=== PATIENT | female | born 2000 | race Caucasian/White ===

== ENCOUNTER 2019-10-16 15:44 | Observation (INO) | payer OTHER ==
[~2019-10-16] VITALS: Ht 160 cm; Wt 97.5 kg
[2019-10-16] MEDS ORDERED: LACTATED RINGERS 1,000 ML IV SCH (16:48)
[2019-10-16] MEDS ORDERED: METHYLERGONOVINE 0.2 MG/ML AMP IM PRN (16:50)
[2019-10-16] MEDS ORDERED: PROMETHAZINE 25 MG/ML VIAL IVP PRN (16:50)
[2019-10-16] MEDS ORDERED: NALBUPHINE 10 MG/ML AMP IVP PRN (16:50)
[2019-10-16] MEDS ORDERED: OXYTOCIN 10 UNITS/ML VIAL IM SCH (16:50)
[2019-10-16] MEDS ORDERED: CARBOPROST 250 MCG/ML AMP IM PRN (16:50)
[2019-10-16 17:55] LABS: BASOPHILS % (AUTO) 0.4 % (0.0-2.0); EOSINOPHILS # (AUTO) 0.2 K/uL (0-0.4); EOSINOPHILS % (AUTO) 2.4 % (0.0-4.0); HEMATOCRIT 35.5 % (36-48); HEMOGLOBIN 11.8 g/dL (12.0-16.0); LYMPHOCYTES # (AUTO) 1.5 K/uL (2.5-16.5); LYMPHOCYTES % (AUTO) 16.8 % (20.5-51.1); MEAN CORPUSCULAR HEMOGLOBIN 28 pg (27-31); MEAN CORPUSCULAR HGB CONC 33 g/dL (33-37); MEAN CORPUSCULAR VOLUME 85.2 fL (80-94); MONOCYTES # (AUTO) 0.7 K/uL (0.8-1.0); MONOCYTES % (AUTO) 7.6 % (1.7-9.3); NEUTROPHILS # (AUTO) 6.4 K/uL (1.8-7.7); NEUTROPHILS % (AUTO) 72.8 % (42.2-75.2); PLATELET COUNT (AUTO) 365 K/uL (140-450); RED BLOOD CELL COUNT(AUTO) 4.17 MIL/uL (4.20-5.40); RED CELL DISTRIBUTION WIDTH 14.5 % (11.6-13.7); WHITE BLOOD COUNT (AUTO) 8.7 K/uL (4.5-11.0)
[2019-10-16 18:01] LABS: APPEARANCE,URINE HAZY (CLEAR); BILIRUBIN,URINE NEGATIVE (NEGATIVE); BLOOD, URINE NEGATIVE (NEGATIVE); COLOR,URINE ORANGE (YELLOW); LEUKOCYTE ESTERASE ,URINE 1+ (NEGATIVE); NITRITE, URINE NEGATIVE (NEGATIVE); PH,URINE 6.5 (5.0-9.0); UGLUCOSE NEGATIVE (NEGATIVE)
[2019-10-16 18:11] LABS: RBC,URINE NONE SEEN /HPF (0-5)
[2019-10-16 19:19] VITALS: BP 129/77
[2019-10-16] MEDS ORDERED: MISOPROSTOL 25 MCG TAB VG SCH (20:00)
[2019-10-17] MEDS ORDERED: INFLUENZA VACCINE QUAD 0.5 ML SYR IMVAC PRN (20:00)
== END 2019-10-16 20:15 | disposition home or self-care (01) ==
LOC: MLD 15:44
PROVIDERS: ADMIT Obstetrics & Gynecology; ATTEND Obstetrics & Gynecology
DX: O41.03X0 Oligohydramnios, third trimester, not applicable or unspecified (principal); Z3A.38 38 weeks gestation of pregnancy
CPT/HCPCS: 36415; 76805; 81001; 85025; 86592; 86886; 86900; 86901; 87086; G0378; Q0092

== ENCOUNTER 2019-10-18 10:06 | Inpatient (IN) | payer OTHER ==
[~2019-10-18] VITALS: Ht 160 cm; Wt 98.0 kg
[2019-10-18] MEDS: LACTATED RINGERS 1,000 ML IV SCH
[2019-10-18] MEDS ORDERED: MISOPROSTOL 25 MCG TAB VG PRN (10:35)
[2019-10-18] MEDS ORDERED: METHYLERGONOVINE 0.2 MG/ML AMP IM PRN (10:35)
[2019-10-18] MEDS ORDERED: CARBOPROST 250 MCG/ML AMP IM PRN (10:35)
[2019-10-18] MEDS ORDERED: NALBUPHINE 10 MG/ML AMP IVP PRN (10:35)
[2019-10-18] MEDS ORDERED: PROMETHAZINE 25 MG/ML VIAL IVP PRN (10:35)
[2019-10-18] MEDS ORDERED: OXYTOCIN 10 UNITS/ML VIAL IM SCH (10:35)
[2019-10-18 11:08] LABS: APPEARANCE,URINE CLEAR (CLEAR); BILIRUBIN,URINE NEGATIVE (NEGATIVE); BLOOD, URINE NEGATIVE (NEGATIVE); COLOR,URINE YELLOW (YELLOW); LEUKOCYTE ESTERASE ,URINE TRACE (NEGATIVE); NITRITE, URINE NEGATIVE (NEGATIVE); PH,URINE 6.5 (5.0-9.0); UGLUCOSE NEGATIVE (NEGATIVE)
[2019-10-18 11:11] LABS: BASOPHILS % (AUTO) 0.4 % (0.0-2.0); EOSINOPHILS # (AUTO) 0.3 K/uL (0-0.4); EOSINOPHILS % (AUTO) 3.3 % (0.0-4.0); HEMATOCRIT 34.6 % (36-48); HEMOGLOBIN 11.4 g/dL (12.0-16.0); LYMPHOCYTES # (AUTO) 1.8 K/uL (2.5-16.5); LYMPHOCYTES % (AUTO) 22.6 % (20.5-51.1); MEAN CORPUSCULAR HEMOGLOBIN 28 pg (27-31); MEAN CORPUSCULAR HGB CONC 33 g/dL (33-37); MEAN CORPUSCULAR VOLUME 85.6 fL (80-94); MONOCYTES # (AUTO) 0.7 K/uL (0.8-1.0); MONOCYTES % (AUTO) 8.2 % (1.7-9.3); NEUTROPHILS # (AUTO) 5.2 K/uL (1.8-7.7); NEUTROPHILS % (AUTO) 65.5 % (42.2-75.2); PLATELET COUNT (AUTO) 353 K/uL (140-450); RED BLOOD CELL COUNT(AUTO) 4.04 MIL/uL (4.20-5.40); RED CELL DISTRIBUTION WIDTH 14.6 % (11.6-13.7); WHITE BLOOD COUNT (AUTO) 7.9 K/uL (4.5-11.0)
[2019-10-18 11:29] LABS: ANION GAP 14.6 (8-16); CARBON DIOXIDE 23.8 mmol/L (21-32); POTASSIUM 4.4 mmol/L (3.5-5.1)
[2019-10-18 11:35] LABS: ALBUMIN 2.3 g/dL (3.4-5.0); TOTAL BILIRUBIN 0.2 mg/dL (0.0-1.0)
[2019-10-18] MEDS ORDERED: MISOPROSTOL 25 MCG TAB ONE (11:45)
[2019-10-18 12:53] LABS: RBC,URINE 0-5 /HPF (0-5); WBC,URINE 0-5 /HPF (0-5)
[2019-10-19] MEDS ORDERED: OXYTOCIN 20 UNITS/LR PREMIX 1,000 ML IV ONE (02:27)
[2019-10-19] MEDS ORDERED: BUPIVACAINE 0.125%/NS PREMIX 250 ML ONE (07:27)
--- NOTE | 2019-10-19 08:14 | NUR ---
PATIENT HAS BEEN SCREENED AND CATEGORIZED LOW NUTRITION RISK. PATIENT WILL BE SEEN WITHIN 7 DAYS OF ADMISSION. 10/24/[address]
[2019-10-19] MEDS: LACTATED RINGERS 1,000 ML IV SCH ×2 (08:32→16:54)
[2019-10-19] MEDS ORDERED: LIDOCAINE 1% 500 MG/50 ML VIAL ONE (19:25)
[2019-10-19] MEDS ORDERED: NACL 0.9% 1,000 ML IV SCH (19:35)
[2019-10-19] MEDS ORDERED: CITRIC ACID/SODIUM CITRATE 30 ML UDC PO ONE (21:45)
[2019-10-19] MEDS ORDERED: CITRIC ACID/SODIUM CITRATE 30 ML UDC ONE (21:48)
[2019-10-19] MEDS ORDERED: ceFAZolin 1,000 MG VIAL ONE (21:48)
[2019-10-19] MEDS ORDERED: fentaNYL 0.05 MG/ML VIAL ONE (22:05)
[2019-10-19] MEDS ORDERED: KETAMINE 500 MG/5 ML VIAL ONE (22:05)
[2019-10-19] MEDS ORDERED: MORPHINE PRES FREE 10 MG/10 ML AMP IV ONE (22:05)
[2019-10-19] MEDS ORDERED: SODIUM BICARBONATE 8.4% PFS 50 MEQ/50 ML SYR IVP ONE (22:06)
[2019-10-19] MEDS ORDERED: LIDOCAINE MPF 2% 100 MG/5 ML VIAL INJ ONE (22:15)
[2019-10-19] MEDS ORDERED: PROPOFOL 200 MG/20 ML VIAL IV ONE (22:20)
[2019-10-19] MEDS ORDERED: ONDANSETRON 4 MG/2 ML VIAL ONE (22:20)
[2019-10-19] MEDS ORDERED: MIDAZOLAM 2 MG/2 ML VIAL ONE (23:14)
[2019-10-20] MEDS ORDERED: OXYTOCIN 20 UNITS in LACTATED RINGERS 1,000 ML IV SCH ×2 (01:19→01:21)
[2019-10-20] MEDS ORDERED: MEASLES, MUMPS, AND RUBELLA 1 VIAL SQVAC PRN (01:20)
[2019-10-20] MEDS ORDERED: KETOROLAC 30 MG/ML VIAL IVP PRN ×2 (01:20→01:25)
[2019-10-20] MEDS ORDERED: HYDROmorphone 1 MG/ML AMP IVP PRN (01:20)
[2019-10-20] MEDS ORDERED: ONDANSETRON 4 MG/2 ML VIAL IVP PRN (01:25)
[2019-10-20] MEDS ORDERED: NALOXONE 0.4 MG/ML VIAL IVP PRN (01:25)
[2019-10-20] MEDS ORDERED: diphenhydrAMINE 50 MG/ML VIAL IVP PRN (01:25)
[2019-10-20 01:26] LABS: BASOPHILS % (AUTO) 0.2 % (0.0-2.0); HEMATOCRIT 24.5 % (36-48); HEMOGLOBIN 7.9 g/dL (12.0-16.0); LYMPHOCYTES # (AUTO) 0.8 K/uL (2.5-16.5); LYMPHOCYTES % (AUTO) 4.7 % (20.5-51.1); MEAN CORPUSCULAR HEMOGLOBIN 28 pg (27-31); MEAN CORPUSCULAR HGB CONC 32 g/dL (33-37); MEAN CORPUSCULAR VOLUME 85.3 fL (80-94); MONOCYTES # (AUTO) 0.8 K/uL (0.8-1.0); MONOCYTES % (AUTO) 4.9 % (1.7-9.3); NEUTROPHILS # (AUTO) 15.8 K/uL (1.8-7.7); NEUTROPHILS % (AUTO) 90.2 % (42.2-75.2); PLATELET COUNT (AUTO) 292 K/uL (140-450); RED BLOOD CELL COUNT(AUTO) 2.87 MIL/uL (4.20-5.40); RED CELL DISTRIBUTION WIDTH 14.5 % (11.6-13.7); WHITE BLOOD COUNT (AUTO) 17.5 K/uL (4.5-11.0)
[2019-10-20] MEDS ORDERED: OXYTOCIN 20 UNITS/LR PREMIX 1,000 ML IV ONE (01:47)
[2019-10-20] MEDS: LACTATED RINGERS 1,000 ML IV SCH ×2 (02:33→15:36)
[2019-10-20] MEDS ORDERED: FUROSEMIDE 20 MG/2 ML VIAL IVP SCH ×3 (06:00→11:25)
[2019-10-20] MEDS ORDERED: ACETAMINOPHEN 325 MG TAB PO PRN (08:20)
[2019-10-20] MEDS ORDERED: ACETAMINOPHEN 325 MG TAB ONE (09:30)
[2019-10-20 19:38] LABS: BASOPHILS % (AUTO) 0.2 % (0.0-2.0); EOSINOPHILS % (AUTO) 0.2 % (0.0-4.0); HEMATOCRIT 27.2 % (36-48); HEMOGLOBIN 9.1 g/dL (12.0-16.0); LYMPHOCYTES # (AUTO) 1.2 K/uL (2.5-16.5); LYMPHOCYTES % (AUTO) 7.3 % (20.5-51.1); MEAN CORPUSCULAR HEMOGLOBIN 28 pg (27-31); MEAN CORPUSCULAR HGB CONC 33 g/dL (33-37); MEAN CORPUSCULAR VOLUME 84.5 fL (80-94); MONOCYTES # (AUTO) 0.7 K/uL (0.8-1.0); MONOCYTES % (AUTO) 4.2 % (1.7-9.3); NEUTROPHILS # (AUTO) 14.5 K/uL (1.8-7.7); NEUTROPHILS % (AUTO) 88.1 % (42.2-75.2); PLATELET COUNT (AUTO) 197 K/uL (140-450); RED BLOOD CELL COUNT(AUTO) 3.22 MIL/uL (4.20-5.40); RED CELL DISTRIBUTION WIDTH 14.4 % (11.6-13.7); WHITE BLOOD COUNT (AUTO) 16.4 K/uL (4.5-11.0)
[2019-10-20] MEDS: ACETAMINOPHEN 325 MG TAB PO PRN (22:12)
[2019-10-21] MEDS: ACETAMINOPHEN 325 MG TAB PO PRN (06:32)
[2019-10-21 11:07] LABS: EOSINOPHILS # (AUTO) 0.2 K/uL (0-0.4); LYMPHOCYTES # (AUTO) 1.7 K/uL (2.5-16.5); MONOCYTES # (AUTO) 0.7 K/uL (0.8-1.0); RED CELL DISTRIBUTION WIDTH 14.9 % (11.6-13.7)
[2019-10-21 11:15] LABS: BASOPHILS % (AUTO) 0.3 % (0.0-2.0); EOSINOPHILS % (AUTO) 1.3 % (0.0-4.0); HEMOGLOBIN 8.6 g/dL (12.0-16.0); LYMPHOCYTES % (AUTO) 10.7 % (20.5-51.1); MEAN CORPUSCULAR HEMOGLOBIN 28 pg (27-31); MEAN CORPUSCULAR HGB CONC 33 g/dL (33-37); MEAN CORPUSCULAR VOLUME 85.7 fL (80-94); MONOCYTES % (AUTO) 4.5 % (1.7-9.3); NEUTROPHILS # (AUTO) 13.4 K/uL (1.8-7.7); NEUTROPHILS % (AUTO) 83.2 % (42.2-75.2); PLATELET COUNT (AUTO) 207 K/uL (140-450); RED BLOOD CELL COUNT(AUTO) 3.04 MIL/uL (4.20-5.40)
[2019-10-21] MEDS ORDERED: ACETAMINOPHEN 325 MG TAB PO PRN (22:00)
[2019-10-22] MEDS: SODIUM PHOSPHATE 118 ML ENEM RC PRN ×2 (08:47→09:01)
[2019-10-22] MEDS ORDERED: SIMETHICONE 80 MG TAB.CHEW PO PRN (09:00)
[2019-10-22] MEDS ORDERED: IBUPROFEN 600 MG TAB PO PRN (09:00)
[2019-10-22] MEDS ORDERED: BISACODYL 5 MG TABEC PO PRN (09:00)
[2019-10-22] MEDS ORDERED: DOCUSATE SODIUM 100 MG GELCAP PO PRN (09:00)
[2019-10-23 08:19] LABS: BASOPHILS % (AUTO) 0.3 % (0.0-2.0); EOSINOPHILS # (AUTO) 0.7 K/uL (0-0.4); EOSINOPHILS % (AUTO) 6.5 % (0.0-4.0); HEMATOCRIT 25.9 % (36-48); HEMOGLOBIN 8.6 g/dL (12.0-16.0); LYMPHOCYTES # (AUTO) 2.1 K/uL (2.5-16.5); LYMPHOCYTES % (AUTO) 19.1 % (20.5-51.1); MEAN CORPUSCULAR HEMOGLOBIN 29 pg (27-31); MEAN CORPUSCULAR HGB CONC 33 g/dL (33-37); MEAN CORPUSCULAR VOLUME 86.2 fL (80-94); MONOCYTES # (AUTO) 0.7 K/uL (0.8-1.0); MONOCYTES % (AUTO) 6.1 % (1.7-9.3); NEUTROPHILS # (AUTO) 7.5 K/uL (1.8-7.7); PLATELET COUNT (AUTO) 317 K/uL (140-450); RED CELL DISTRIBUTION WIDTH 14.7 % (11.6-13.7)
== END 2019-10-23 15:15 | disposition home or self-care (01) | DRG 540 ==
LOC: MLD 10:06 → MFCC 10-20 01:57
PROVIDERS: ADMIT Obstetrics & Gynecology; ATTEND Obstetrics & Gynecology
PROC: 3E0P7VZ Introduction of Hormone into Female Reproductive, Via Natural or Artificial Opening (ICD-10-PCS; 2019-10-18)
PROC: 30233N1 Transfusion of Nonautologous Red Blood Cells into Peripheral Vein, Percutaneous Approach (ICD-10-PCS; 2019-10-20)
PROC: 10D00Z1 Extraction of Products of Conception, Low, Open Approach (ICD-10-PCS; principal; 2019-10-22)
DX: O32.4XX0 Maternal care for high head at term, not applicable or unspecified (principal); O63.9 Long labor, unspecified; O99.214 Obesity complicating childbirth; Z37.0 Single live birth; Z3A.39 39 weeks gestation of pregnancy
CPT/HCPCS: 36415; 51702; 59200; 76805; 76815; 80053; 81001; 85025; 86592; 86886; 86900; 86901; 86920; J0690; J1940; J2001; J2250; J2270; J2405; J2590; J2704; J3010; J3490; J7060; J7120; P9016; Q0092